=== PATIENT | male | born 1955 | race Caucasian/White ===

== ENCOUNTER 2018-11-18 13:52 | Outpatient (RCR) | payer OTHER ==
[~2018-11-18 13:52] MED LIST: LIDOCAINE VISC 2% SOLN 15 ML UDC ONE
[2018-11-18] MEDS ORDERED: LIDOCAINE/PRILOCAINE 2.5-2.5% KIT ONE (17:41)
== END 2018-12-02 ==
LOC: WCC 13:52
PROVIDERS: ATTEND Podiatrist
DX: L97.521 Non-pressure chronic ulcer of other part of left foot limited to breakdown of skin (principal); L97.512 Non-pressure chronic ulcer of other part of right foot with fat layer exposed; R60.0 Localized edema; I70.203 Unspecified atherosclerosis of native arteries of extremities, bilateral legs; I10 Essential (primary) hypertension; D64.9 Anemia, unspecified; K21.0 Gastro-esophageal reflux disease with esophagitis; W51.XXXA Accidental striking against or bumped into by another person, initial encounter; Y92.410 Unspecified street and highway as the place of occurrence of the external cause

== ENCOUNTER 2019-05-17 15:08 | Outpatient (RCR) | payer OTHER | END 2019-06-03 | LOC: WCC 15:08 | PROVIDERS: ATTEND Podiatrist | DX: S91.102A Unspecified open wound of left great toe without damage to nail, initial encounter (principal); S91.109A Unspecified open wound of unspecified toe(s) without damage to nail, initial encounter; I70.203 Unspecified atherosclerosis of native arteries of extremities, bilateral legs; I10 Essential (primary) hypertension; D64.9 Anemia, unspecified; K21.0 Gastro-esophageal reflux disease with esophagitis; W51.XXXA Accidental striking against or bumped into by another person, initial encounter; Y92.410 Unspecified street and highway as the place of occurrence of the external cause ==